=== PATIENT | male | born 1990 | race Caucasian/White ===

== ENCOUNTER 2018-07-24 21:36 | Inpatient (IN) | payer BC, OTHER ==
[2018-07-24] MEDS ORDERED: Morphine 4 MG/ML VIAL ONE ×3 (22:10→22:46)
[2018-07-24] MEDS ORDERED: Ondansetron PF 4 MG/2 ML Vial ONE ×2 (22:10→23:47)
[2018-07-24] MEDS ORDERED: Sodium Chloride 0.9% 100 ML ONE (22:30)
[2018-07-24] MEDS ORDERED: CEFAZOLIN 1 GM VIAL ONE (22:30)
--- NOTE | 2018-07-24 22:54 | CT ---
CT FACIAL BONES: 07/24/18 Multiple axial tomograms obtained through the facial bones with multiplanar reconstruction. INDICATIONS: Injury to left face. FINDINGS: Nasal bones appear intact. There are numerous comminuted fractures involving the left maxilla. These involve the floor of the or bit on the left as well the anterior and medial radford of the left maxillary sinus. Anterior wall frac tures are comminuted. Air fluid level in the left maxillary sinus. Zygomatic arch is intact. Mandible is intact. IMPRESSION: Comminuted fractures involving the left maxilla. Anterior wall of left maxillary sinus is comminuted. Comminuted fractures involving the medial wall of the left maxillary sinus and there are fractures i nvolving the floor of the orbit on the left/superior wall of the left maxillary sinus. POS: MENDEL
[2018-07-25] MEDS ORDERED: Dextrose 50% Abboject 50 ML SYRINGE SLOW IVP PRN (01:11)
[2018-07-25] MEDS ORDERED: Dextrose 5% in Water 1,000 ML IV PRN (01:11)
[2018-07-25] MEDS ORDERED: Ondansetron ODT 4 MG TAB PO PRN (01:11)
[2018-07-25] MEDS ORDERED: Promethazine HCl 25 MG/ML VIAL IM PRN ×2 (01:11→12:37)
[2018-07-25 01:44] LABS: #Lymphocytes 1.1 thou/uL (1.20-3.40); #Monocytes 0.5 thou/uL (0.11-0.59); #Neutrophils 15.7 thou/uL (1.40-6.50); %Lymphocytes 6.5 % (21.0-51.0); %Neutrophils 90.4 % (42.0-75.0); Hemoglobin 15.2 g/dL (14.0-18.0); Mean Corpuscular HGB CONC 34.6 g/dL (32.0-36.0); Mean Corpuscular Hemoglobin 30.9 pg (27.0-31.0); Mean Corpuscular Volume 89.3 fL (78.0-98.0); Platelet Count 294 thou/uL (130-400); Red Blood Cell (RBC) Count 4.93 mill/uL (4.70-6.10); White Blood Cell (WBC) Count 17.4 thou/uL (4.8-10.8)
[2018-07-25 01:49] LABS: INR-International Normal Ratio 1.1; PTT 25.6 SEC (22.9-36.1)
[2018-07-25] MEDS: Sodium Chloride 0.9% 1,000 ML IV SCH ×2 (02:30→14:10)
[2018-07-25 02:40] LABS: Anion Gap 11 mmol/L (10-20); BUN (Urea Nitrogen) 13 mg/dL (8.9-20.6); Calc. Creatinine Clearance 0 mL/min (70-130); Calcium 9.2 mg/dL (7.8-10.44); Carbon Dioxide 26 mmol/L (22-29); Chloride 106 mmol/L (98-107); Estimated GFR-MDRD 84; Glucose 123 mg/dL (70-105); Magnesium 2.1 mg/dL (1.6-2.6); Phosphorus 2.9 mg/dL (2.3-4.7); Sodium 139 mmol/L (136-145)
[2018-07-25] MEDS: Morphine 4 MG/ML VIAL SLOW IVP PRN ×3 (02:44→17:10)
[2018-07-25] MEDS: Acetaminophen 1,000 MG in Premix Bag 1 BAG IVPB SCH ×4 (02:45→19:59)
[2018-07-25] MEDS: Ketorolac Tromethamine 30 MG/ML VIAL IVP SCH ×4 (02:45→20:00)
[2018-07-25] MEDS: Ondansetron PF 4 MG/2 ML Vial IVP PRN ×2 (02:47→17:10)
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
[2018-07-25 04:21] VITALS: BMI 31.6
[2018-07-25] MEDS ORDERED: Scopolamine 1.5 mg/72 hour Patch TD SCH (06:00)
[2018-07-25] MEDS ORDERED: Acetaminophen 1,000 MG in Premix Bag 1 BAG IVPB SCH (06:00)
[2018-07-25] MEDS ORDERED: Ketorolac Tromethamine 30 MG/ML VIAL IVP SCH (06:00)
[2018-07-25] MEDS: traMADol HCl 50 MG TAB PO SCH ×4 (06:40→22:59)
--- NOTE | 2018-07-25 07:55 | CT ---
CT HEAD WITHOUT CONTRAST: Date: 07/25/18 Multiple axial tomograms obtained through the head without IV enhancement. INDICATION: Injury to head. FINDINGS: Ventricles have normal size and position. There is no evidence of intracranial hemorrhage. No mass or contusion. IMPRESSION: No evidence of acute intracranial injury. POS: AGW
--- NOTE | 2018-07-25 08:07 | RAD ---
RADIOGRAPH CHEST 1 VIEW: HISTORY: 27-year-old male for preoperative clearance. FINDINGS: There are no air space densities, pulmonary edema, pneumothorax, or cardiomegaly. The lateral costop hrenic angles are sharp. IMPRESSION: No acute cardiopulmonary findings. guerda [] POS: MENDEL
[2018-07-25] MEDS: Famotidine 20 MG TAB PO SCH ×2 (08:19→20:00)
--- NOTE | 2018-07-25 09:17 | PRG ---
DATE OF SERVICE: 07/25/2018 SUBJECTIVE: Please see [facility] H and P for full details. Mr. Regalado has no complaints this morning. OBJECTIVE: GENERAL: He is alert and oriented, answering questions appropriately, complaining of some mild midface pain. VITAL SIGNS: He is afebrile. Vital signs are stable. CHEST: Clear. HEART: Regular rate and rhythm. ABDOMEN: Soft, nontender. EXTREMITIES: He is able to move all extremities without difficulty. IMAGING DATA: Brain CT negative. Facial bone CT showed comminuted left maxilla fracture with left orbital fracture. Chest x-ray showed no acute finding. ASSESSMENT AND PLAN: Work injury with facial fractures. Dr. Lynch to take to the operating room this morning. We will leave the disposition up to him. Could be discharged home later today if okay with Dr. Lynch. Job ID: [id number]
[2018-07-25] MEDS ORDERED: Lidocaine 1% w/Epinephrine 1:100K 30 ML VIAL ONE (11:19)
[2018-07-25] MEDS ORDERED: Bacitracin Zinc Ointment 30 gm TUBE ONE (11:19)
[2018-07-25] MEDS ORDERED: CEFAZOLIN 2 GM/50 ML BAG ONE (11:20)
[2018-07-25] MEDS ORDERED: Midazolam HCl 2 mg/2 ml Vial ONE (11:20)
[2018-07-25] MEDS ORDERED: Fentanyl 100 MCG/2 ML VIAL ONE ×3 (11:20→13:01)
[2018-07-25] MEDS ORDERED: Oxymetazoline HCl 0.05% ( 15 ML ) ONE (11:45)
[2018-07-25] MEDS ORDERED: Ondansetron HCl/PF 4 MG/2 ML Vial IVP PRN (12:37)
[2018-07-25] MEDS ORDERED: Promethazine HCl 25 MG/ML VIAL SLOW IVP PRN (12:37)
[2018-07-25] MEDS: D5 1/2 NS w/20 mEq KCL 1,000 ML IV SCH ×2 (15:18→22:59)
[2018-07-25] MEDS: traMADol HCl 50 MG TAB PO PRN ×2 (16:29→22:59)
[2018-07-25] MEDS ORDERED: Dexamethasone 20 MG/5 ML VIAL ONE (22:15)
[2018-07-25] MEDS ORDERED: Ondansetron PF 4 MG/2 ML Vial ONE (22:15)
[2018-07-25] MEDS ORDERED: PROPOFOL 200 MG/20 ML VIAL ONE (22:15)
[2018-07-25] MEDS ORDERED: ePHEDrine/0.9% NaCl/PF SYRINGE 50 mg/10 ml ONE (22:15)
[2018-07-25] MEDS ORDERED: Lidocaine 1% PF 5 ML VIAL ONE (22:15)
[2018-07-26] MEDS: Ondansetron PF 4 MG/2 ML Vial IVP PRN ×2 (00:15→07:16)
[2018-07-26] MEDS: Morphine 4 MG/ML VIAL SLOW IVP PRN ×2 (00:17→07:20)
[2018-07-26] MEDS: Acetaminophen 1,000 MG in Premix Bag 1 BAG IVPB SCH (01:54)
[2018-07-26] MEDS: Ketorolac Tromethamine 30 MG/ML VIAL IVP SCH ×2 (01:55→07:19)
[2018-07-26] MEDS: traMADol HCl 50 MG TAB PO SCH ×2 (05:42→12:37)
[2018-07-26] MEDS: traMADol HCl 50 MG TAB PO PRN (05:43)
[2018-07-26] MEDS: D5 1/2 NS w/20 mEq KCL 1,000 ML IV SCH (06:29)
[2018-07-26] MEDS ORDERED: Ibuprofen 800 MG TAB PO SCH (08:00)
[2018-07-26] MEDS: Famotidine 20 MG TAB PO SCH (08:26)
[2018-07-26] MEDS: Acetaminophen 500 MG TAB PO SCH ×2 (08:26→14:39)
[2018-07-26 11:39] VITALS: BP 112/72; TEMP 98.3
[2018-07-27] MEDS ORDERED: Bacitracin Zinc 1 Packet TOP SCH (09:00)
[2018-07-27] MEDS ORDERED: Bacitracin Zinc Ointment 30 gm TUBE TOP SCH (09:00)
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
--- NOTE | 2018-07-28 09:24 | OP ---
DATE OF PROCEDURE: 07/25/2018 PREOPERATIVE DIAGNOSES: 1. Complex fracture of the left maxilla, inferior orbital wall, and orbital floor. 2. Complex laceration of the left upper lip, left nasal ala, and intranasal origin. 3. Complex fracture of the septum and inferior turbinate. PROCEDURES PERFORMED: 1. Septoplasty. 2. Complex repair of left nasolabial laceration measuring over 12 cm. 3. Open reduction and internal fixation of left maxillary sinus fracture. DESCRIPTION OF PROCEDURE: After consent was obtained, the patient was identified, brought to the operating room, and placed on the operating table in the supine position. General endotracheal anesthesia was obtained and the patient was positioned for surgery. The wound was explored and debrided and access was obtained to the maxillary sinus. At the anterior face of the maxillary sinus, depressed fragments were elevated and reduced and secured in place with microplates. We then irrigated after the anterior face of the maxillary sinus was reestablished where we proceeded with septoplasty. We were able to elevate the septal mucosa after making a [place] incision and removing of deformed cartilage and bone. We were then able to straighten the septum and placed straightened cartilage back into the mucoperichondrial envelope. This was then followed by a quilting suture, which reapproximated the mucosa and the wound was closed. The remainder of the procedure focused predominantly on repairing a very complicated upper lip macerated laceration as well as left nasal ala and intranasal tissue. The nasal ala was reconstructed by reapproximating deep tissues with absorbable Monocryl and the skin with 6-0 Prolene. The intranasal ridge and alar ridge were reconstructed in a similar fashion. Intranasal repair happened endoscopically and involved 4-0 and 5-0 chromic sutures. After some time, we were able to re-establish an adequate nasal vestibule and reestablish the nasal airway. The inferior turbinate was also repaired at this time and intranasal external splint was then placed and the patient was awakened, extubated, and taken to the recovery room in stable condition prior to discharge home. Job ID: [id number]
== END 2018-07-26 15:00 | disposition home or self-care (01) | DRG 131 ==
LOC: ERS 21:36 → SURG A 07-25 01:56
PROVIDERS: ADMIT Surgery; ATTEND Surgery
PROC: 0NSR04Z Reposition Maxilla with Internal Fixation Device, Open Approach (ICD-10-PCS; principal; 2018-07-25)
PROC: 0CQ00ZZ Repair Upper Lip, Open Approach (ICD-10-PCS; 2018-07-25)
PROC: 09QM0ZZ Repair Nasal Septum, Open Approach (ICD-10-PCS; 2018-07-25)
DX: S02.401A Maxillary fracture, unspecified side, initial encounter for closed fracture (principal); S06.9X9A Unspecified intracranial injury with loss of consciousness of unspecified duration, initial encounter; F17.210 Nicotine dependence, cigarettes, uncomplicated; S01.81XA Laceration without foreign body of other part of head, initial encounter; W22.8XXA Striking against or struck by other objects, initial encounter; Y93.H3 Activity, building and construction
CPT/HCPCS: 36415; 70450; 70486; 71045; 80048; 83735; 84100; 85025; 85610; 85730; 96361; 96365; 96375; 96376; J0131; J0690; J1100; J1885; J2001; J2250; J2270; J2405; J2704; J3010; J7050

== ENCOUNTER 2018-08-26 15:44 | Outpatient (CLI) | payer OTHER | END 2018-08-26 15:45 | disposition home or self-care (01) | LOC: CTENTCT 15:44 | PROVIDERS: ATTEND Specialist | DX: S02.2XXA Fracture of nasal bones, initial encounter for closed fracture (principal) | CPT/HCPCS: 70486 ==